=== PATIENT | male | born 1975 | race Caucasian/White ===

== ENCOUNTER 2017-05-19 10:08 | Emergency (ER) | payer BC ==
[~2017-05-19] VITALS: Ht 175.3 cm; Wt 86.2 kg
[~2017-05-19 10:08] MED LIST: AUGMENTIN 875-1 EACH PO; NORCO 5-325 TA1 EACH PO
[2017-05-19] MEDS ORDERED: OMEPRAZOLE20 MG PO (11:25)
== END 2017-05-19 11:51 | disposition home or self-care (01) ==
LOC: ED 10:08
DX: F41.9 Anxiety disorder, unspecified (principal); I10 Essential (primary) hypertension; F17.200 Nicotine dependence, unspecified, uncomplicated; Z79.899 Other long term (current) drug therapy; K92.0 Hematemesis
CPT/HCPCS: 36415; 80048; 85025; 99283

== ENCOUNTER 2019-06-09 15:19 | Emergency (ER) | payer OTHER, BC ==
[~2019-06-09] VITALS: Ht 175.3 cm; Wt 86.2 kg
[~2019-06-09 15:19] MED LIST changes: +OMEPRAZOLE20 MG PO
== END 2019-06-09 16:56 | disposition home or self-care (01) ==
LOC: ED 15:19
DX: S46.912A Strain of unspecified muscle, fascia and tendon at shoulder and upper arm level, left arm, initial encounter (principal); I10 Essential (primary) hypertension; F17.200 Nicotine dependence, unspecified, uncomplicated; X50.1XXA Overexertion from prolonged static or awkward postures, initial encounter
CPT/HCPCS: 73030; 99283

== ENCOUNTER 2021-07-08 11:21 | Emergency (ER) | payer BC ==
[~2021-07-08] VITALS: Ht 175.3 cm; Wt 95.9 kg
[2021-07-08] MEDS ORDERED: LISINOPRIL5 MG PO (17:48)
[2021-07-08] MEDS ORDERED: OMEPRAZOLE20 MG PO (17:48)
== END 2021-07-08 18:13 | disposition home or self-care (01) ==
LOC: ED 11:21
DX: K29.70 Gastritis, unspecified, without bleeding (principal); T39.315A Adverse effect of propionic acid derivatives, initial encounter; I10 Essential (primary) hypertension; F17.200 Nicotine dependence, unspecified, uncomplicated
CPT/HCPCS: 76705; 80048; 80053; 81001; 83690; 85025; 99284-25

== ENCOUNTER 2021-08-05 15:13 | Emergency (ER) | payer OTHER, BC ==
[~2021-08-05] VITALS: Ht 175.3 cm; Wt 86.3 kg
[~2021-08-05 15:13] MED LIST changes: +LISINOPRIL5 MG PO
--- OUTSIDE RECORDS SUMMARY | 2021-08-05 15:22 | XMS ---
PreManage Notification: TIMOTEO STORM [employer] Events No recent Security Events currently on file CRITERIA MET - [facility] - 2 Visits in 30 Days CARE PROVIDERS There are no care providers on record at this time. [place] has no Care Guidelines for this patient. [place] V[facility] COUNT (12 [address] [facility] NOTE: Visits indicate total known visits. ED/C VISIT TRACKING (12 MO.) [facility] COMPLAINT: - LT LEG INJURY 07/08/2021 11:[address] [facility] TYPE: Emergency COMPLAINT: - R UPPER ADM PAIN DIAGNOSES: - Nicotine dependence, unspecified, uncomplicated - Right upper quadrant pain - Gastritis, unspecified, without bleeding - Adverse effect of propionic acid derivatives, initial encounter - Essential (primary) hypertension INPATIENT VISIT TRACKING (12 MO.) No inpatient visits to display in this time frame [email or web address]
== END 2021-08-05 17:47 | disposition home or self-care (01) ==
LOC: ED 15:13
DX: S83.92XA Sprain of unspecified site of left knee, initial encounter (principal); X50.1XXA Overexertion from prolonged static or awkward postures, initial encounter; Y99.0 Civilian activity done for income or pay; I10 Essential (primary) hypertension; F17.200 Nicotine dependence, unspecified, uncomplicated; Z79.899 Other long term (current) drug therapy
CPT/HCPCS: 73560; 99283-25

== ENCOUNTER 2021-09-07 14:44 | Emergency (ER) | payer BC ==
[~2021-09-07] VITALS: Ht 175.3 cm; Wt 86.3 kg
[2021-09-07] MEDS ORDERED: ADVIL200 MG PO (14:56)
[2021-09-07] MEDS ORDERED: PREDNISONE20 MG PO (15:53)
== END 2021-09-07 16:05 | disposition home or self-care (01) ==
LOC: ED 14:44
DX: M54.30 Sciatica, unspecified side (principal); I10 Essential (primary) hypertension; F17.200 Nicotine dependence, unspecified, uncomplicated; Z79.899 Other long term (current) drug therapy
CPT/HCPCS: 99283; J7512

== ENCOUNTER 2022-12-03 08:25 | Emergency (ER) | payer SELFPAY ==
[~2022-12-03] VITALS: Ht 175.3 cm; Wt 86.2 kg
[~2022-12-03 08:25] MED LIST changes: +ADVIL200 MG PO; +PREDNISONE20 MG PO
[2022-12-03] MEDS ORDERED: LISINOPRIL10 MG PO (09:27)
--- NOTE | 2022-12-04 07:16 | EKG ---
[facility] [address] [facility] [place], [place] [address] Signed Sinus tachycardia Otherwise normal ECG No previous ECGs available Confirmed by ELFEGO MCGARRY MD ([id number] on 12/04/2022 7:15:56 AM Electronically Signed By: ELFEGO MCGARRY MD 12/04/22 0716 PATIENT NAME: TIMOTEO STORM YENIFERDOMENIC Electrocardiogram DATE OF : 71 PHYSICIAN: ELFEGO MCGARRY MD REPORT #: [id number] REPORT IS CONFIDENTIAL AND NOT TO BE RELEASED WITHOUT AUTHORIZATION
== END 2022-12-03 09:35 | disposition home or self-care (01) ==
LOC: ED 08:25
DX: I10 Essential (primary) hypertension (principal); H11.31 Conjunctival hemorrhage, right eye; F10.10 Alcohol abuse, uncomplicated; F17.210 Nicotine dependence, cigarettes, uncomplicated; F17.220 Nicotine dependence, chewing tobacco, uncomplicated
CPT/HCPCS: 36415; 71045; 80053; 85025; 85610; 93005; 93010; 96374; 99284-25; 99406; J2060

== ENCOUNTER 2024-04-29 10:50 | Emergency (ER) | payer OTHER ==
[~2024-04-29 10:50] MED LIST changes: +LISINOPRIL10 MG PO
[2024-04-29] MEDS ORDERED: ACETAMINOPHEN 500 MG TAB PO ONE (12:00)
[2024-04-29] MEDS ORDERED: predniSONE 20 MG TAB PO ONE (12:00)
[2024-04-29 14:07] LABS: ALBUMIN 3.2 g/dL (3.4-5.0); ALBUMIN/GLOBULIN RATIO 0.82 (1.1-2.4); ANION GAP 7.5 (7-21); BILIRUBIN, TOTAL 0.5 ng/dL (0.2-1.0); BUN/CREATININE RATIO 18.18 (6.0-28.6); CALCIUM 8.6 mg/dL (8.5-10.1); CREATININE, SERUM 0.99 mg/dL (0.70-1.30); POTASSIUM 4.5 mmol/L (3.5-5.1); PROTEIN, TOTAL 7.1 g/dL (6.4-8.2)
[2024-04-29 14:09] LABS: BASOPHILS 0.5 % (0-2); EOSINOPHILS 3.6 % (0-6); HEMATOCRIT 47.7 % (35.0-50.0); HEMOGLOBIN 15.8 g/dL (12.0-18.0); LYMPHOCYTES 19.9 % (24-44); MCHC 33.1 g/dl (30-36); MCV 93.8 fl (81-99); MONOCYTES 11.2 % (0-12); NEUTROPHILS 64.8 % (39-80); PLATELET COUNT 201 K/uL (140-440); RBC 5.09 M/ul (4.3-5.7); RDW 14.5 (10.5-15.0)
[2024-04-29] MEDS ORDERED: ZESTORETIC 10-1 EACH PO (14:22)
[2024-04-29] MEDS ORDERED: K-TAB ER20 MEQ PO (14:22)
[2024-04-29 14:48] VITALS: BP 150/99
== END 2024-04-29 14:50 | disposition home or self-care (01) ==
LOC: ED 10:50
PROVIDERS: Emergency Medicine
DX: M54.41 Lumbago with sciatica, right side (principal); I10 Essential (primary) hypertension; F17.200 Nicotine dependence, unspecified, uncomplicated; Z79.52 Long term (current) use of systemic steroids; Z79.899 Other long term (current) drug therapy
CPT/HCPCS: 36415; 80053; 85025

== ENCOUNTER 2025-04-08 20:47 | Emergency (ER) | payer SELFPAY ==
[~2025-04-08] VITALS: Ht 175.3 cm; Wt 118.0 kg
[~2025-04-08 20:47] MED LIST changes: +K-TAB ER20 MEQ PO; +ZESTORETIC 10-1 EACH PO
[2025-04-08 21:53] LABS: BASOPHILS 0.7 % (0.2-1.2); EOSINOPHILS 3.6 % (0.8-7.0); HEMATOCRIT 46.9 % (40.1-51.0); HEMOGLOBIN 15.5 g/dL (13.7-17.5); LYMPHOCYTES 27.8 % (21.8-53.1); MCH 32.4 PG (25.7-32.2); MCV 98.1 fL (79.0-92.2); MONOCYTES 9.9 % (5.3-12.2); NEUTROPHILS 57.5 % (34.0-67.9); PLATELET COUNT 188 K/uL (163-337); RBC 4.78 M/uL (4.63-6.08)
[2025-04-08 22:23] LABS: ALBUMIN 3.1 g/dL (3.4-5.0); ALBUMIN/GLOBULIN RATIO 0.78 (1.1-2.4); ANION GAP 10.7 (7-21); BILIRUBIN, TOTAL 0.5 mg/dL (0.2-1.0); BUN/CREATININE RATIO 10.08 (6.0-28.6); CALCIUM 8.1 mg/dL (8.5-10.1); CREATININE, SERUM 1.19 mg/dL (0.70-1.30); POTASSIUM 3.7 mmol/L (3.5-5.1); PROTEIN, TOTAL 7.1 g/dL (6.4-8.2)
[2025-04-09] MEDS ORDERED: CEPHALEXIN MONOHYDRATE 500 MG HOME.PACK PO ONE (01:15)
[2025-04-09] MEDS ORDERED: FUROSEMIDE 40 MG TAB PO ONE (01:15)
[2025-04-09] MEDS ORDERED: LISINOPRIL-HCT1 EAC1 PO (01:20)
[2025-04-09] MEDS ORDERED: CEPHALEXIN500 M1 PO (01:20)
[2025-04-09 01:26] VITALS: BP 163/87
--- NOTE | 2025-04-09 12:18 | EKG ---
[facility] [address] [facility] [place] [address] Signed Sinus tachycardia When compared with ECG of 03-DEC-2022 08:30, No significant change was found Confirmed by Azar Gracia DO ([id number]) on 04/09/2025 12:18:12 PM Electronically Signed By: AZAR GRACIA DO 04/09/25 1218 PATIENT NAME: TIMOTEO STORM Electrocardiogram DATE OF : 71 PHYSICIAN: AZAR GRACIA DO REPORT #: [id number] REPORT IS CONFIDENTIAL AND NOT TO BE RELEASED WITHOUT AUTHORIZATION
== END 2025-04-09 01:30 | disposition home or self-care (01) ==
LOC: ED 20:47
PROVIDERS: Internal Medicine
DX: L03.116 Cellulitis of left lower limb (principal); R60.0 Localized edema; I10 Essential (primary) hypertension; Z79.52 Long term (current) use of systemic steroids
CPT/HCPCS: 36415; 80053; 83880; 84484; 85025; 85379; 93005; 93010; 93971; 99284-25; A9270